=== PATIENT | female | born 1960 | race Two or more races ===

== ENCOUNTER 2018-10-01 14:59 | Emergency (ER) | payer BC, OTHER ==
[~2018-10-01] VITALS: Ht 167.6 cm; Wt 74.8 kg
--- NOTE | 2018-10-01 15:05 | NUR ---
PT BIBRA TO ER BED 07. PT WAS AT A CAR RENTAL PLACE GOING TO THE BATHROOM WHEN SHE SLIPPED AND FELL LANDING IN HER BUTTOCKS. PT DENIES HEAD INJURY. GOWNED NO OBVIOUS TRAUMA NOTED. AWAITING MD FUNG.
--- NOTE | 2018-10-01 15:39 | NUR ---
DR LAWTON AT BEDSIDE FOR EVAL.
[2018-10-01] MEDS ORDERED: KETOROLAC TROMETHAMINE 15 MG/ML VIAL ONE (15:44)
[2018-10-01] MEDS ORDERED: ACETAMINOPHEN 325 MG TABLET PO ONE (16:00)
[2018-10-01] MEDS ORDERED: KETOROLAC TROMETHAMINE INJ 30 MG/ML VIAL IM ONE (16:00)
[2018-10-01] MEDS ORDERED: ACETAMINOPHEN 325 MG TABLET ONE (16:05)
--- NOTE | 2018-10-01 16:21 | NUR ---
PT TO RADIOLOGY FOR COCCYX XRAY VIA [employer].
--- NOTE | 2018-10-01 17:33 | NUR ---
Patient discharged to home in stable condition. Written and verbal after care instructions given. Patient verbalizes understanding of instruction.
[2018-10-01 17:34] VITALS: BP 115/78
== END 2018-10-01 17:35 | disposition home or self-care (01) ==
LOC: ER 15:01
DX: S39.82XA Other specified injuries of lower back, initial encounter (principal); I10 Essential (primary) hypertension; E11.9 Type 2 diabetes mellitus without complications; E03.9 Hypothyroidism, unspecified; Z85.850 Personal history of malignant neoplasm of thyroid; Z88.0 Allergy status to penicillin; Z60.2 Problems related to living alone; W01.0XXA Fall on same level from slipping, tripping and stumbling without subsequent striking against object, initial encounter; Y93.89 Activity, other specified; Y92.89 Other specified places as the place of occurrence of the external cause; Y99.8 Other external cause status
CPT/HCPCS: 72220; 96372; 99283; A4606; J1885; Z7610